=== PATIENT | female | born 1940 | race Caucasian/White ===

== ENCOUNTER 2018-02-22 12:36 | Emergency (ER) | payer MEDICARE, BC ==
[2018-02-22 12:45] VITALS: BP 00/00
--- NOTE | 2018-02-22 13:19 | UC ---
Abdominal Pain Female HPI - HPI Summary HPI Summary: In the middle of the night 2 nights ago was woken with terrible stomach cramps followed by pink, mucusy stool. Yesterday no appetite, 4-5 more episodes of cramps followed by pink mucus, then again this morning. Has been eating with , he doesn't have similar symptoms. No fever, able to keep down fluids - History of Current Complaint Chief Complaint: UCAbdominalPain Stated Complaint: ABD PAIN Time Seen by Provider: 02/22/18 12:55 Hx Obtained From: Patient ?: No Onset/Duration: Sudden Onset, Lasting Days Timing: Constant Severity Initially: Moderate Severity Currently: Mild Pain Intensity: 9 Location: Diffuse Radiates: No Character: Cramping Aggravating Factor(s): Food, Movement Alleviating Factor(s): Bowel Movement Associated Signs and Symptoms: Positive: Blood in Stool, Vomiting. Negative: Fever, Cough Allergies/Adverse Reactions: Allergies Allergy/AdvReac Type Severity Reaction Status Date / Time No Known Allergies Allergy Verified 02/22/18 12:45 Home Medications: Home Medications Apixaban [Eliquis] 5 mg PO BID 02/22/18 [History Confirmed 02/22/18] Digoxin TAB* [Lanoxin TAB*] 0.25 mg PO DAILY 02/22/18 [History Confirmed ] Metoprolol Succinate 25 mg PO 02/22/18 [History] PMH/Surg Hx/FS Hx/Imm Hx Cardiovascular History: Hypertension, Pacemaker/ICD - Surgical History Surgical History: Yes Surgery Procedure, Year, and Place: pacer - Family History Known Family History: Positive: Hypertension - Social History Occupation: Retired Lives: With Family Alcohol Use: Daily Substance Use Type: None Smoking Status (MU): Never Smoked Tobacco Review of Systems Constitutional: Negative Skin: Negative Eyes: Negative ENT: Negative Respiratory: Negative Cardiovascular: Negative Gastrointestinal: Abdominal Pain, Diarrhea Genitourinary: Negative Motor: Negative Neurovascular: Negative Musculoskeletal: Negative Neurological: Negative Psychological: Negative Is Patient Immunocompromised?: No All Other Systems Reviewed And Are Negative: Yes Physical Exam Triage Information Reviewed: Yes Appearance: Well-Nourished, Pain Distress - mild Vital Signs: Initial Vital Signs Temp 98.1 F 02/22/18 12:41 Pulse 74 02/22/18 12:41 Resp 18 02/22/18 12:41 BP 00/00 18 12:41 Pulse Ox 98 02/22/18 12:41 Vital Signs Reviewed: Yes Eye Exam: Normal Eyes: Positive: Conjunctiva Clear Dental Exam: Normal Neck exam: Normal Neck: Positive: Supple, Nontender, No Lymphadenopathy Respiratory Exam: Normal Respiratory: Positive: Chest non-tender, Lungs clear, Normal breath sounds, No respiratory distress, No accessory muscle use Cardiovascular Exam: Normal Cardiovascular: Positive: RRR, No Murmur Abdomen Description: Positive: Soft, Guarding, Other: - low abdominal tenderness with percussion. Negative: CVA Tenderness (R), CVA Tenderness (L) Bowel Sounds: Positive: Present Neurological Exam: Normal Neurological: Positive: Alert Psychological Exam: Normal Skin Exam: Normal Abd Pain Female Course/Dx - Differential Dx/Diagnosis Provider Diagnoses: colitis. blood per rectum Discharge - Sign-Out/Discharge Documenting (check all that apply): Discharge/Admit/Transfer - Discharge Plan Condition: Stable Disposition: HOME Prescriptions: Dicyclomine CAP* [Bentyl CAP*] 10 mg PO QID PRN #20 cap PRN Reason: pain Patient Education Materials: Colitis (ED) Referrals: Katy Cole MD [Primary Care Provider] - 3 Days Additional Instructions: It is unclear what organism is causing your symptoms right now, but I think you have an infection in your large intestine. Please return the filled stool cups to the main hospital at your soonest convenience so we can try to determine if you need therapy. If your symptoms gradually improve on their own, no further treatment needed. - Billing Disposition and Condition Condition: STABLE Disposition: Home
--- NOTE | 2018-02-26 19:18 | UC ---
- Progress Note Progress Note: 02/26/2018 Pt Dx w/ colitis Stool culture: negative, no enteric pathogen isolated, negative Shiga toxin 1& 2 and negative for Cryptosporidium and Giardia No change. Kelli Pena PA-C Discharge - Sign-Out/Discharge Documenting (check all that apply): Discharge/Admit/Transfer - D/c home - Discharge Plan Condition: Stable Disposition: HOME Prescriptions: Dicyclomine CAP* [Bentyl CAP*] 10 mg PO QID PRN #20 cap PRN Reason: pain Patient Education Materials: Colitis (ED) Referrals: Katy Cole MD [Primary Care Provider] - 3 Days Additional Instructions: It is unclear what organism is causing your symptoms right now, but I think you have an infection in your large intestine. Please return the filled stool cups to the main hospital at your soonest convenience so we can try to determine if you need therapy. If your symptoms gradually improve on their own, no further treatment needed. - Billing Disposition and Condition Condition: STABLE Disposition: Home
== END 2018-02-22 13:24 | disposition home or self-care (01) ==
LOC: UCEAST 12:36
DX: K52.9 Noninfective gastroenteritis and colitis, unspecified (principal); K62.5 Hemorrhage of anus and rectum; R11.10 Vomiting, unspecified; I10 Essential (primary) hypertension; Z95.810 Presence of automatic (implantable) cardiac defibrillator; Z82.49 Family history of ischemic heart disease and other diseases of the circulatory system
CPT/HCPCS: 87045; 87046; 87077; 87147; 87328; 87329; 87899; 99212; G0463

== ENCOUNTER 2018-04-12 18:38 | Emergency (ER) | payer MEDICARE, BC ==
--- OUTSIDE RECORDS SUMMARY | 2018-04-12 18:52 | XMS REPORT ---
:1940 External Reference #:[id number] Author Organization [facility] [place] Address [address] [place] [address] Phone [phone] Care Team Providers Name Role Phone Katy Cole MD Primary Care Physician Unavailable Payers Type Date Identification Numbers Payment Provider Subscriber Medicare Primary Effective: Policy Number: Medicare Poornima Dash 2004 [id number] PayID: [id number] [address] [place] [address] [facility] Part B Effective: Policy Number: [facility] Poornima Dash 2005 [id number] PayID: [id number] [address] [address] [place] [address] Problems Date Description Provider Status Onset: 06/04/2016 Atrial fibrillation Katy Cole M.D. Active Onset: 06/04/2016 Cardiac pacemaker Katy Cole M.D. Active Onset: 02/27/2018 Bicipital tenosynovitis Hill Shirley MD Active Onset: 02/27/2018 Acquired trigger finger Hill Shirley MD Active Family History Date Family Member(s) Problem(s) Comments : (age 72 Father due to Hemorrhage unknown cause Years) Mother Alzheimer's Disease Onset: (age 96 Mother Kidney Disease kidney failure Years) Mother Osteoporosis hip fracture, fell on stairs Siblings 3 First Brother Alive And Well age 84 Second Brother Alzheimer's Disease living at age 83 : (age 55 Third Brother due to Sudden Years) : (age 64 Fourth Brother due to Prostate Years) Cancer Fifth Brother Alzheimer's Disease living at age 79 Sixth Brother Alive And Well age 76 First Sister Alive And Well age 70 Social History Type Date Description Comments Marital Status 2 daughters Lives With longoria in [place], otherwise in [place] ETOH Use Drinks 1 Alcoholic Beverage Per 1-2 per day Day Smoking Patient is a former smoker 1 PPD Allergies, Adverse Reactions, Alerts Date Description Reaction Status Severity Comments 06/04/2016 NKDA active Medications Medication Date Status Form Strength Qnty SIG Indications Ordering Provider Eliquis Active Tablets 5mg 1 by Unknown 000 mouth twice a day Digoxin Active Tablets 250mcg 1 by Katy 000 mouth Cotton, every day M.D. Prolia Hx Solution 60mg/ml 60mg 60 mg sc M85.852 Katy 017 - q6 months Cotton, M.D. 018 Metoprolol Hx Tablets ER 25mg 1 by Katy Succinate ER 016 - 24HR mouth Cotton, every day M.D. 017 Metoprolol Hx Tablets 25mg 1 by Unknown Tartrate 000 - mouth once a 016 day Vitamin C Hx Capsules 500mg 2 by Unknown 000 - mouth every day 018 Calcium + D Hx Chewtabs 500-1000-4 every day Unknown 000 - 0mg-Unt-mc as needed g 018 Vitamin D Hx Capsules 1000Unit 1 by Unknown (Cholecalcifer 000 - mouth ol) every day 018 Doxycycline Hx Capsules 10mg take one Unknown 000 - DR capsule 4 times 018 daily by mouth as needed Medications Administered in Office Medication Date Status Form Strength Qnty SIG Indications Ordering Provider Celestone 3 mg Administered Injection Hill and 3mg 018 MD Fern Celestone 3 mg Administered Injection Hill and 3mg 018 MD Fern Prolia Administered Injection Nurse Visit Injection, 018 A Denosumab, 1MG Immunizations CPT Code Status Date Vaccine Lot # [id number] Given 06/05/2017 Influenza Virus Vaccine, Quadrivalent, Split, [id number] Preservative Free [id number] Given 06/04/2016 Influenza Virus Vaccine, Quadrivalent, Split, [id number] Preservative Free [id number] Given 06/04/2016 Pneumococcal Conjugate Vaccine 13 Valent For [id number] Intramuscular Use Vital Signs Date Vital Result Comment 03/31/2018 Height 66.25 inches 5'6.25" Weight 128.00 lb Heart Rate 68 /min BP Systolic Sitting 87 mmHg BP Diastolic Sitting 57 mmHg O2 % BldC Oximetry 98 % BMI (Body Mass Index) 20.5 kg/m2 02/27/2018 Height 67 inches 5'7" Weight 132.25 lb Heart Rate 80 /min BP Systolic 122 mmHg BP Diastolic 70 mmHg Respiratory Rate 12 /min Body Temperature 98.6 F Pain Level 6 BMI (Body Mass Index) 20.7 kg/m2 02/24/2018 Weight 128.50 lb Heart Rate 99 /min BP Systolic 102 mmHg BP Diastolic 58 mmHg Body Temperature 98.2 F O2 % BldC Oximetry 97 % 02/06/2018 Height 66.25 inches 5'6.25" Weight 131.00 lb Heart Rate 64 /min BP Systolic Sitting 94 mmHg BP Diastolic Sitting 50 mmHg O2 % BldC Oximetry 98 % BMI (Body Mass Index) 21.0 kg/m2 06/05/2017 Height 66.25 inches 5'6.25" Weight 132.00 lb Heart Rate 88 /min BP Systolic 108 mmHg BP Diastolic 50 mmHg O2 % BldC Oximetry 99 % BMI (Body Mass Index) 21.1 kg/m2 02/21/2017 Height 66.25 inches 5'6.25" Weight 136.25 lb Heart Rate 60 /min BP Systolic 112 mmHg BP Diastolic 58 mmHg Body Temperature 97.4 F O2 % BldC Oximetry 98 % BMI (Body Mass Index) 21.8 kg/m2 06/04/2016 Height 66 inches 5'6" Weight 140.00 lb Heart Rate 65 /min BP Systolic Sitting 130 mmHg BP Diastolic Sitting 80 mmHg Body Temperature 96.5 F O2 % BldC Oximetry 98 % BMI (Body Mass Index) 22.6 kg/m2 Results Test Date Test Result H/L Range Note CBC Auto Diff 02/27/2018 White Blood Count 3.5 10^3/uL 3.5-10.8 Red Blood Count 3.53 10^6/uL Low 4.00-5.40 Hemoglobin 11.8 g/dL Low 12.0-16.0 Hematocrit 35 % 35-47 Mean Corpuscular Volume 99 fL High 80-97 Mean Corpuscular Hemoglobin 34 pg High 27-31 Mean Corpuscular HGB Conc 34 g/dL 31-36 Red Cell Distribution Width 14 % 10.5-15 Platelet Count 213 10^3/uL 150-450 Mean Platelet Volume 8.2 um3 7.4-10.4 Abs Neutrophils 2.1 10^3/uL 1.5-7.7 Abs Lymphocytes 0.9 10^3/uL Low 1.0-4.8 Abs Monocytes 0.4 10^3/uL 0-0.8 Abs Eosinophils 0.1 10^3/uL 0-0.6 Abs Basophils 0 10^3/uL 0-0.2 Abs Nucleated RBC 0 10^3/uL Granulocyte % 59.4 % 38-83 Lymphocyte % 26.6 % 25-47 Monocyte % 11.6 % High 0-7 Eosinophil % 1.4 % 0-6 Basophil % 1.0 % 0-2 Nucleated Red Blood Cells % 0.1 Laboratory test finding 02/27/2018 TSH (Thyroid Stim Horm) 2.57 mcIU/mL 0.34-5.60 Digoxin 1.2 ng/ml 0.8-2.0 Lipid Profile (Trig/Chol/HDL) 02/27/2018 Triglycerides 52 mg/dL 1 Cholesterol 197 mg/dL 2 HDL Cholesterol 70.9 mg/dL 3 LDL Cholesterol 116 mg/dL 4 Comp Metabolic Panel 02/27/2018 Sodium 141 mmol/L 135-145 Potassium 4.2 mmol/L 3.5-5.0 Chloride 107 mmol/L 101-111 Co2 Carbon Dioxide 29 mmol/L 22-32 Anion Gap 5 mmol/L 2-11 Glucose 93 mg/dL 70-100 Blood Urea Nitrogen 12 mg/dL 6-24 Creatinine 0.73 mg/dL 0.51-0.95 BUN/Creatinine Ratio 16.4 8-20 Calcium 8.5 mg/dL Low 8.6-10.3 Total Protein 5.9 g/dL Low 6.4-8.9 Albumin 3.8 g/dL 3.2-5.2 Globulin 2.1 g/dL 2-4 Albumin/Globulin Ratio 1.8 1-3 Total Bilirubin 0.30 mg/dL 0.2-1.0 Alkaline Phosphatase 79 U/L 34-104 Alt 14 U/L 7-52 Ast 19 U/L 13-39 Egfr Non- 77.1 >60 Egfr 93.3 >60 5 Laboratory test finding 02/27/2018 Creatine Kinase(CK) 116 U/L 10-223 Hemoglobin A1c (Glyco HGB) 5.1 % 4.0-5.6 6 Laboratory test finding 02/23/2018 Stool Culture SEE RESULT BELOW 7 E.Coli 0157:H7 SEE RESULT BELOW 8 CBC Auto Diff 02/19/2017 White Blood Count 5.8 10^3/uL 3.5-10.8 Red Blood Count 3.73 10^6/uL Low 4.0-5.4 Hemoglobin 12.2 g/dL 12.0-16.0 Hematocrit 37 % 35-47 Mean Corpuscular Volume 98 fL High 80-97 Mean Corpuscular Hemoglobin 33 pg High 27-31 Mean Corpuscular HGB Conc 33 g/dL 31-36 Red Cell Distribution Width 15 % 10.5-15 Platelet Count 181 10^3/uL 150-450 Mean Platelet Volume 10 um3 7.4-10.4 Abs Neutrophils 3.9 10^3/uL 1.5-7.7 Abs Lymphocytes 1.3 10^3/uL 1.0-4.8 Abs Monocytes 0.4 10^3/uL 0-0.8 Abs Eosinophils 0 10^3/uL 0-0.6 Abs Basophils 0.1 10^3/uL 0-0.2 Abs Nucleated RBC 0.01 10^3/uL Granulocyte % 67.6 % 38-83 Lymphocyte % 23.0 % Low 25-47 Monocyte % 7.6 % 1-9 Eosinophil % 0.7 % 0-6 Basophil % 1.1 % 0-2 Nucleated Red Blood Cells % 0.1 Comp Metabolic Panel 02/19/2017 Sodium 139 mmol/L 133-145 Potassium 4.0 mmol/L 3.5-5.0 Chloride 103 mmol/L 101-111 Co2 Carbon Dioxide 28 mmol/L 22-32 Anion Gap 8 mmol/L 2-11 Glucose 125 mg/dL High 70-100 Blood Urea Nitrogen 18 mg/dL 6-24 Creatinine 0.83 mg/dL 0.51-0.95 BUN/Creatinine Ratio 21.7 High 8-20 Calcium 9.9 mg/dL 8.6-10.3 Total Protein 6.1 g/dL Low 6.4-8.9 Albumin 4.0 g/dL 3.2-5.2 Globulin 2.1 g/dL 2-4 Albumin/Globulin Ratio 1.9 1-3 Total Bilirubin 0.40 mg/dL 0.2-1.0 Alkaline Phosphatase 81 U/L 34-104 Alt 14 U/L 7-52 Ast 18 U/L 13-39 Egfr Non- 66.7 >60 Egfr 85.7 >60 9 Comp Metabolic Panel 06/04/2016 Sodium 137 mmol/L 133-145 Potassium 4.0 mmol/L 3.5-5.0 Chloride 102 mmol/L 101-111 Co2 Carbon Dioxide 30 mmol/L 22-32 Anion Gap 5 mmol/L 2-11 Glucose 85 mg/dL 70-100 Blood Urea Nitrogen 14 mg/dL 6-24 Creatinine 0.76 mg/dL 0.51-0.95 BUN/Creatinine Ratio 18.4 8-20 Calcium 9.4 mg/dL 8.6-10.3 Total Protein 6.9 g/dL 6.4-8.9 Albumin 4.4 g/dL 3.2-5.2 Globulin 2.5 g/dL 2-4 Albumin/Globulin Ratio 1.8 1-3 Total Bilirubin 0.70 mg/dL 0.2-1.0 Alkaline Phosphatase 123 U/L High 34-104 Alt 27 U/L 7-52 Ast 29 U/L 13-39 Egfr Non- 74.0 >60 Egfr 95.2 >60 10 CBC Auto Diff 06/04/2016 White Blood Count 5.9 10^3/uL 3.5-10.8 Red Blood Count 3.82 10^6/uL Low 4.0-5.4 Hemoglobin 12.6 g/dL 12.0-16.0 Hematocrit 38 % 35-47 Mean Corpuscular Volume 98 fL High 80-97 Mean Corpuscular Hemoglobin 33 pg High 27-31 Mean Corpuscular HGB Conc 34 g/dL 31-36 Red Cell Distribution Width 14 % 10.5-15 Platelet Count 185 10^3/uL 150-450 Mean Platelet Volume 9 um3 7.4-10.4 Abs Neutrophils 3.8 10^3/uL 1.5-7.7 Abs Lymphocytes 1.4 10^3/uL 1.0-4.8 Abs Monocytes 0.6 10^3/uL 0-0.8 Abs Eosinophils 0.1 10^3/uL 0-0.6 Abs Basophils 0 10^3/uL 0-0.2 Abs Nucleated RBC 0 10^3/uL Granulocyte % 64.5 % 38-83 Lymphocyte % 24.6 % Low 25-47 Monocyte % 9.4 % High 1-9 Eosinophil % 0.9 % 0-6 Basophil % 0.6 % 0-2 Nucleated Red Blood Cells % 0.1 Laboratory test finding 06/04/2016 Vitamin D Total 25(Oh) 49.2 ng/mL 30- 50 1 Desirable: <150 Borderline High: 150-199 High: 200-499 Very High: >500 2 Desirable: <200 Borderline High: 200-239 High: >239 3 Low: <40 Desirable: 40-60 High: >60 4 Desirable: <100 Near Optimal: 100-129 Borderline High: 130-159 High: 160-189 Very High: >189 5 Because ethnic data is not always readily available, this report includes an eGFR for both -Americans and non- Americans. The National Kidney Disease Education Program (NKDEP) does not endorse the use of the MDRD equation for patients that are not between the ages of 18 and 70, are , have extremes of body size, muscle mass, or nutritional status, or are non- or non-. According to the National Kidney Foundation, irrespective of diagnosis, the stage of the disease is based on the level of kidney function: Stage Description GFR(mL/min/1.73 m(2)) 1 Kidney damage with normal or decreased GFR 90 2 Kidney damage with mild decrease in GFR 60-89 3 Moderate decrease in GFR 30-59 4 Severe decrease in GFR 15-29 5 Kidney failure <15 (or dialysis) 6 Therapeutic target for the treatment of diabetes mellitus patients is <7% HBA1C, and in selective patients <6.0%. Please refer to [place] [employer] Diabetes Association diabetic care guidelines for further information. 7 SEE RESULT BELOW Name: POORNIMA DASH: [address]: Sil Galvan Acct: [id number] Unit: [id number] AGE: 77 Location: [facility] Re02/22/18 SEX: F Status: DEP ER SPEC: [id number] FRANCIS: 02/23/18-[address]: Sil Duran DO REQ: [id number] RECD: 02/23/18 STATUS: RES OTHR DR: Katy Cole MD _ SOURCE: STOOL SPDESC: ORDERED: E.coli O157:H7, Stool Culture, O P: Giar/Crypt COMMENTS: C. Difficile toxin testing is not performed on formed stool specimens. Test of cure on positive patients is not recommended. Verbal to [id number] by [email or web address] at 1730 on 02/23/18. Procedure Result Reported Site E.coli O157:H7 Culture PENDING Stool Culture Final 02/26/18- 0942 ML Result No enteric pathogens isolated Testing for Salmonella, Shigella, Aeromonas, Plesiomonas, Yersinia and Campylobacter are included in a Stool Culture. Vibrio spp not routinely tested for in a stool culture. If testing is desired, please request specifically when placing test order. Sensitivities not routinely performed on stool isolates, as antibiotics may prolong the carriage rate of bacteria. Please contact the microbiology lab if sensitivities are required. Stool Specimen Description Final 02/23/18- 1322 ML Stool Color Brown Stool Form Formed Stool Consistency Firm Shiga Toxin 1 2 Final 02/24/18- 1149 ML Organism 1 Negative Shiga Toxin 1 2 CONTINUED ON NEXT PAGE DEPARTMENT OF PATHOLOGY, [address] [place] [address] Negrito Malloy M.D. Director [facility] # [id number] Patient: POORNIMA DASH [id number] (Continued) Specimen: [id number] Collected: 02/23/18-999 Received: 02/23/18 (Continued) Procedure Result Reported Site Shiga Toxin 1 2 Final (continued) 02/24/18- 1149 Immunochromatographic Assay O P: Giardia/Cryptospor Screen Final 02/23/18- 1329 ML Organism 1 Neg Cryptosporidium/Giardia Giardia and cryptosporidium antigen testing performed by enzyme immunoassay. If patient is immunocompromised or has traveled to or is from a developing country, a full ova and parasite exam with microscopic (OPMIC) is recommended. All samples will be held one month in case full ova and parasite testing is requested. Contact the Microbiology Department at [phone]. TEST LIMITATIONS: As with all diagnostic procedures, the results obtained should be used in conjunction with other clinical information available the physician, including confirmation by another method. Negative results can occur in samples containing antigen below lower limits of detection of the assay. One negative specimen does not rule out the possibility of a parasitic infection. To improve detection it is recommended that three specimens be collected on separate days over a period of not more than seven days. The use of colonic washes, aspirates or other diluted sample types has not been established and could affect the performance of the assay. Stool samples contaminated with an oily or particulate base (eg. Barium, mineral oil etc.) could interfere with the test and are not recommended. * ML - Main Lab . END OF REPORT DEPARTMENT OF PATHOLOGY, [address] [place] [address] Negrito Malloy M.D. Director [facility] # [id number] SEE RESULT BELOW Name: POORNIMA DASH : [address]: Sil Galvan Acct: [id number] Unit: [id number] AGE: 77 Location: [facility] Re02/23/18 SEX: F Status: REG REF SPEC: [id number] FRANCIS: 02/23/18-[address]: Sil Duran DO REQ: [id number] RECD: 02/23/18 STATUS: KELBY CONSTANTINO DR: Katy Cole MD _ SOURCE: STOOL SPDESC: ORDERED: E.coli O157:H7, Stool Culture, O P: Giar/Crypt COMMENTS: C. Difficile toxin testing is not performed on formed stool specimens. Test of cure on positive patients is not recommended. Verbal to TERESA by [id number] at 1730 on 02/23/18. Procedure Result Reported Site E.coli O157:H7 Culture Final 02/26/18- 1028 ML E. coli 0157 Culture Negative Stool Culture Final 02/26/18- 0942 ML Result No enteric pathogens isolated Testing for Salmonella, Shigella, Aeromonas, Plesiomonas, Yersinia and Campylobacter are included in a Stool Culture. Vibrio spp not routinely tested for in a stool culture. If testing is desired, please request specifically when placing test order. Sensitivities not routinely performed on stool isolates, as antibiotics may prolong the carriage rate of bacteria. Please contact the microbiology lab if sensitivities are required. Stool Specimen Description Final 02/23/18- 1322 ML Stool Color Brown Stool Form Formed Stool Consistency Firm Shiga Toxin 1 2 Final 02/24/18- 1149 ML Organism 1 Negative Shiga Toxin 1 2 CONTINUED ON NEXT PAGE DEPARTMENT OF PATHOLOGY, [address] [place] [address] Negrito Malloy M.D. Director [facility] # [id number] Patient: POORNIMA DASH [id number] (Continued) Specimen: [id number] Collected: 02/23/18 Received: 02/23/18 (Continued) Procedure Result Reported Site Shiga Toxin 1 2 Final (continued) 02/24/18- 1148 Immunochromatographic Assay O P: Giardia/Cryptospor Screen Final 02/23/181328 ML Organism 1 Neg Cryptosporidium/Giardia Giardia and cryptosporidium antigen testing performed by enzyme immunoassay. If patient is immunocompromised or has traveled to or is from a developing country, a full ova and parasite exam with microscopic (OPMIC) is recommended. All samples will be held one month in case full ova and parasite testing is requested. Contact the Microbiology Department at [phone]. TEST LIMITATIONS: As with all diagnostic procedures, the results obtained should be used in conjunction with other clinical information available the physician, including confirmation by another method. Negative results can occur in samples containing antigen below lower limits of detection of the assay. One negative specimen does not rule out the possibility of a parasitic infection. To improve detection it is recommended that three specimens be collected on separate days over a period of not more than seven days. The use of colonic washes, aspirates or other diluted sample types has not been established and could affect the performance of the assay. Stool samples contaminated with an oily or particulate base (eg. Barium, mineral oil etc.) could interfere with the test and are not recommended. * ML - Main Lab . END OF REPORT DEPARTMENT OF PATHOLOGY, [address] [place] [address] Negrito Malloy M.D. Director [facility] # [id number] 9 Because ethnic data is not always readily available, this report includes an eGFR for both -Americans and non- Americans. The National Kidney Disease Education Program (NKDEP) does not endorse the use of the MDRD equation for patients that are not between the ages of 18 and 70, are , have extremes of body size, muscle mass, or nutritional status, or are non- or non-. According to the National Kidney Foundation, irrespective of diagnosis, the stage of the disease is based on the level of kidney function: Stage Description GFR(mL/min/1.73 m(2)) 1 Kidney damage with normal or decreased GFR 90 2 Kidney damage with mild decrease in GFR 60-89 3 Moderate decrease in GFR 30-59 4 Severe decrease in GFR 15-29 5 Kidney failure <15 (or dialysis) 10 Because ethnic data is not always readily available, this report includes an eGFR for both -Americans and non- Americans. The National Kidney Disease Education Program (NKDEP) does not endorse the use of the MDRD equation for patients that are not between the ages of 18 and 70, are , have extremes of body size, muscle mass, or nutritional status, or are non- or non-. According to the National Kidney Foundation, irrespective of diagnosis, the stage of the disease is based on the level of kidney function: Stage Description GFR(mL/min/1.73 m(2)) 1 Kidney damage with normal or decreased GFR 90 2 Kidney damage with mild decrease in GFR 60-89 3 Moderate decrease in GFR 30-59 4 Severe decrease in GFR 15-29 5 Kidney failure <15 (or dialysis) Procedures Date CPT Code Description Status 02/27/201809604 Inject/Drain Joint/Bursa Major W/O US Completed 02/27/201899933 Inject Tendon Sheath Or Ligament Aponeurosis Eg Plantar Completed Fascia 10/01/2017 54955 Admin Of Inj Completed 01/20/2017 Bone Mineral Density Test Completed 06/04/2016 33113 EKG Tracing & Interpretation Completed 08/22/2015 Mammogram Completed 01/17/2015 Bone Mineral Density Test Completed 01/10/2015 Colonoscopy Completed Encounters Type Date Location Provider CPT E/M Dx Office Visit 02/27/2018 [place] [address] M65.332 9:00a [facility] M75.22 Office Visit 02/24/2018 1:40p [facility] Internal Margarita Mera, N.P. 198[address] A09 [facility] Nelli Moreno Office Visit 02/06/2018 2:20p [facility] Internal Katy Cole 24658 M65.332 [facility] Josh Patiño M54.2 Office Visit 06/05/2017 3:30p [facility] Internal Katy Cole 18976 M85.852 Karyn Moreno M.D. Z23 Office Visit 02/21/2017 1:20p [facility] Internal Medicine Katy Cole 38823 Z00.00 - Josh Patiño M79.672 Office Visit 06/04/2016 10:20a [facility] Internal [facility] Katy Cole 27367 I48.2 - Josh Patiño Z79.01 M81.0 M54.2 Z23 Plan of Care Future Appointment(s):04/06/2019 9:20 am - Katy Cole M.D. at [facility] Internal Medicine [facility]04/14/2018 9:15 am - Hill Shirley [facility]/31[facility]2018 - Katy Cole M.D.Z00.00 Encntr for general adult medical exam w/o abnormal findingsComments:~B_VACCINES:~b_Flu shot every year in the fall.Tetanus: last one done in 2012Pneumonia vaccine: you had the Prevnar in 2015. You should also get the PneumovaxShingles vaccine: You had the Zostavax in the past - 50% effectiveThere is a new shingles vaccine - Shingrix - 90% effective. This is available at pharmacies. Series of 2 shots, given 2-6 months apart. Most people get a flu-like reaction. Cost is about $400 - call your insurance about coverage. ~B_SCREENING:~b_Colonoscopy: last one done in 2014, [place] one [place] smear: not needed after age 65Skin cancer screening: with dermatology in [place] - important to have annual skin checksBone density (DEXA): done in 2016Screening for glaucoma: every 2 years unless otherwise instructed by your eye doctor ~B_ ADVANCE DIRECTIVE:~b_It would be good for us to have a copy of your health care proxy and advanced directive on file here. ~B_EXERCISE:~b_Keep up the golf and tennis, add walkingFollow up:SERAFIN for Dr. Brannon and Natan, see me 1 yearImmunizations/Injections:Pneumonia Vaccine
--- NOTE | 2018-04-12 19:25 | ED ---
Head Injury - HPI Summary HPI Summary: Patient on Jaison complains of head injury, left rib pain, left elbow pain after falling backwards while trying to sit in a hammock at 5 PM. Patient landed on posterior head when she fell over backwards. Denies LOC, AMS, vision change, N/V, LAUREN, focal deficits, bleeding, neck pain, back pain, SOB, bilateral lower extremity pain, right upper extremity pain, abdominal pain. Medical history is A. fib, pacemaker, osteopenia. - History Of Current Complaint Chief Complaint: EDHeadInjury Stated Complaint: FALL/ON BLOOD THINNERS Time Seen by Provider: 04/12/18 18:51 Hx Obtained From: Patient Mechanism Of Injury: Fall From Height Of: Onset/Duration: Started Hours Ago Severity Currently: Moderate Severity Initially: Moderate Pain Intensity: 4 Pain Scale Used: 0-10 Numeric Location of Head Injury: Occipital Character: Throbbing Associated Signs And Symptoms: Negative Anticoagulant Therapy: Blood Thinners - Allergies/Home Medications Allergies/Adverse Reactions: Allergies Allergy/AdvReac Type Severity Reaction Status Date / Time No Known Allergies Allergy Verified 04/12/18 18:48 PMH/Surg Hx/FS Hx/Imm Hx Endocrine/Hematology History: Reports: Hx Anticoagulant Therapy Cardiovascular History: Reports: Hx Atrial Fibrillation Respiratory History: Denies: Hx Chronic Obstructive Pulmonary Disease (COPD) History: Denies: Hx Dialysis Neurological History: Denies: Hx CVA - Surgical History Surgery Procedure, Year, and Place: pacer Infectious Disease History: No Infectious Disease History: Denies: Traveled Outside the [place] in Last 30 Days - Family History Known Family History: Positive: Hypertension - Social History Alcohol Use: Daily Substance Use Type: Reports: None Smoking Status (MU): Never Smoked Tobacco Review of Systems Constitutional: Negative Eyes: Negative ENT: Negative Cardiovascular: Negative Respiratory: Negative Gastrointestinal: Negative Genitourinary: Negative Musculoskeletal: Other Skin: Negative Neurological: Negative Psychological: Normal All Other Systems Reviewed And Are Negative: Yes Physical Exam - Summary Physical Exam Summary: Neuro exam normal. EOMs intact. PERRLA. No ecchymosis, erythema, swelling, deformity, abrasions or lacerations noted to head, face, and mouth. No pain with palpation of neck or back. Positive tenderness to palpation on left side ribs. Patient is able to flex and extend left elbow with pain. Flexes and extends bilateral lower extremities without any indication of pain. No pain with palpation of abdomen, right upper extremity, chest. Triage Information Reviewed: Yes Vital Signs On Initial Exam: Initial Vitals Temp Pulse Resp BP Pulse Ox 98.9 F 69 16 142/100 97 04/12/18 18:44 04/12/18 18:44 04/12/18 18:44 04/12/18 18:44 04/12/18 18:44 Vital Signs Reviewed: Yes Appearance: Positive: Well-Appearing Skin: Positive: Warm Head/Face: Positive: Normal Head/Face Inspection Eyes: Positive: Normal ENT: Positive: Normal ENT inspection Neck: Positive: Supple Respiratory/Lung Sounds: Positive: Clear to Auscultation Cardiovascular: Positive: Normal Abdomen Description: Positive: Nontender Musculoskeletal: Positive: Normal Neurological: Positive: Normal Psychiatric: Positive: Normal AVPU Assessment: Alert - Jude Coma Scale Best Eye Response: 4 - Spontaneous Best Motor Response: 6 - Obeys Commands Best Verbal Response: 5 - Oriented Coma Scale Total: 15 Diagnostics - Vital Signs Vital Signs Temp Pulse Resp BP Pulse Ox 04/12/18 18:44 98.9 F 69 16 142/100 97 - Laboratory Lab Statement: Any lab studies that have been ordered have been reviewed, and results considered in the medical decision making process. - Radiology ribs Xray Interpretation: No Acute Changes Radiology Interpretation Completed By: Radiologist elbow Xray Interpretation: No Acute Changes Radiology Interpretation Completed By: Radiologist - CT head CT Interpretation: No Acute Changes CT Interpretation Completed By: Radiologist Head Injury Course/Dx Course Of Treatment: Patient on [place] complains of head injury, left rib pain , left elbow pain after falling backwards while trying to sit in a hammock at 5 PM. Patient landed on posterior head when she fell over backwards. Denies LOC , AMS, vision change, N/V, LAUREN, focal deficits, bleeding, neck pain, back pain, SOB, bilateral lower extremity pain, right upper extremity pain, abdominal pain. Medical history is A. fib, pacemaker, osteopenia. Physical exam:No ecchymosis, erythema, swelling, deformity, abrasions or lacerations noted to head, face, and mouth. No pain with palpation of neck or back. Positive tenderness to palpation on left side ribs. Patient is able to flex and extend left elbow with pain. Flexes and extends bilateral lower extremities without any indication of pain. No pain with palpation of abdomen, right upper extremity, chest. Rib x-ray negative. Left elbow x-ray negative. CT head negative. - Diagnoses Provider Diagnoses: Fall Discharge - Sign-Out/Discharge Documenting (check all that apply): Patient Departure - Discharge Plan Condition: Stable Disposition: HOME Patient Education Materials: Fall Prevention (ED) Referrals: Katy Cole MD [Primary Care Provider] - Additional Instructions: Follow-up with primary care. Return to the ED for any new or worsening symptoms - Billing Disposition and Condition Condition: STABLE Disposition: Home
--- NOTE | 2018-04-12 19:48 | RAD ---
Indication: Left elbow pain. 4 views of left elbow demonstrates no fracture. No other bone or joint abnormalities identified. No joint effusion is noted. IMPRESSION: Unremarkable left elbow.
--- NOTE | 2018-04-12 19:49 | RAD ---
Indication: Fall, chest injury. 3 views of the left ribs as well as dual energy PA views of the chest demonstrate no mediastinal shift. Heart is of normal size and configuration. Lung ashley appear hyperinflated with no evidence of pneumothorax. No fracture of the ribs is noted. IMPRESSION: No fracture of the ribs. No pneumothorax is noted.
--- NOTE | 2018-04-12 19:56 | RAD ---
Indication: Follow-up, patient on anticoagulants. Head injury. CT of the brain performed without IV contrast. Ventricular structures are midline. No midline shift is noted. The extra-axial spaces are unremarkable. There is no evidence of intracranial mass or hemorrhage. No other high density lesion is identified. There is calcifications over the left frontal convexity consistent with dural calcifications. Mastoid air cells and paranasal sinuses are unremarkable. IMPRESSION: No intracranial mass or hemorrhage is noted.
[2018-04-12 20:41] VITALS: BP 140/80
== END 2018-04-12 20:40 | disposition home or self-care (01) ==
LOC: ED 18:38
DX: S09.90XA Unspecified injury of head, initial encounter (principal); R07.81 Pleurodynia; M25.522 Pain in left elbow; W17.89XA Other fall from one level to another, initial encounter; Y92.9 Unspecified place or not applicable; I48.91 Unspecified atrial fibrillation; Z79.01 Long term (current) use of anticoagulants; M85.80 Other specified disorders of bone density and structure, unspecified site
CPT/HCPCS: 70450; 71111; 99281